=== PATIENT | male | born 2005 | race Caucasian/White ===

== ENCOUNTER → 2023-11-24 | Day surgery (SDC) | payer OTHER ==
[~2023-11-24] VITALS: Ht 190.5 cm; Wt 80.1 kg
[~2023-11-24] MED LIST: ACETAMINOPHEN 1000MG 100ML IV BAG As Ordered ONE; HYDROMORPHONE HCL 0.5 MG/ 0.5 ML SYRINGE IV PRN; KETOROLAC 60MG 2ML VIAL As Ordered ONE; LIDOCAINE 2% 100MG/5ML SDV (FOR ANES.) As Ordered ONE; LR 1,000 ML IV SCH; MIDAZOLAM INJ 2MG/2ML VIAL As Ordered ONE; ONDANSETRON 4MG 2ML VIAL As Ordered ONE; ONDANSETRON 4MG 2ML VIAL IV PRN; PERC5TAB12 PO; fentaNYL 100 MCG/2 ML INJECTION As Ordered ONE; fentaNYL 100 MCG/2 ML INJECTION IV PRN; propofoL 200 MG/20 ML VIAL As Ordered ONE
[2023-11-24] MEDS: ceFAZolin SOD 2 GM in IV 1 EA IV ONE (10:00)
[2023-11-24] MEDS: ceFAZolin 2 GM/D5W 50 ML IV BAG As Ordered ONE (10:09)
[2023-11-24] MEDS: BACITRACIN OINTMENT 30GM TUBE As Ordered ONE (10:27)
[2023-11-24] MEDS: oxyCODONE 5MG TAB PO PRN (11:25)
[2023-11-24 11:45] VITALS: BP 118/64; TEMP 97.8; O2SAT 96
== END | disposition home or self-care (01) ==
LOC: M SDC 07:54
PROVIDERS: ATTEND Orthopaedic Surgery Hand Surgery
DX: D18.01 Hemangioma of skin and subcutaneous tissue (principal); G43.909 Migraine, unspecified, not intractable, without status migrainosus; Z88.0 Allergy status to penicillin; F17.200 Nicotine dependence, unspecified, uncomplicated; K21.9 Gastro-esophageal reflux disease without esophagitis
CPT/HCPCS: 26115; 88307; J0131; J0665; J0690; J1100; J1885; J2250; J2405; J3010